=== PATIENT | female | born 1950 | race Caucasian/White ===

== ENCOUNTER 2018-06-16 15:47 | Emergency (ER) | payer MEDICARE ==
[2018-06-16 16:03] VITALS: BP 136/86; PULSE 80; O2SAT 95
== END 2018-06-16 16:50 | disposition left against medical advice (07) ==
LOC: ED 15:47
DX: Z53.21 Procedure and treatment not carried out due to patient leaving prior to being seen by health care provider (principal)
CPT/HCPCS: 99283; G0463

== ENCOUNTER 2018-11-30 08:31 | Emergency (ER) | payer MEDICARE ==
--- NOTE | 2018-11-30 08:52 | ERPHSYRPT ---
- History of Present Illness Time Seen by Provider: 11/30/18 08:40 Source: patient Exam Limitations: no limitations Patient Subjective Stated Complaint: fell down approx [address] in her home and injured right wrist, right black eye and right shoulder pain Triage Nursing Assessment: Pt c/o of right shoulder pain, right black eye, and right wrist pain due to a fall down 20 carpeted stairs in her home, rates pain 10/10, right wrist swollen, denies any other pain, denies losing consciousness, capillary refill good, pulses good, vitals wnl Physician History: 68 y/o white female on xarelto who 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 there is an obvious deformity of right wrist. Occurred: just prior to arrival Reason for Fall: slipped Injuries/Pain Location: head, upper extremity (right) Loss of Consciousness: no loss of consciousness Severity of Pain-Max: mild Severity of Pain-Current: mild Modifying Factors: Improves With: movement Associated Symptoms (Fall): denies symptoms, extremity injury, No abdominal pain , No back pain, No confusion, No chest pain, No dizziness Allergies/Adverse Reactions: No Known Drug Allergies Allergy (Verified 11/30/18 08:47) Home Medications: Escitalopram Oxalate [Lexapro] 20 mg PO HS 07/26/14 [History] Esomeprazole Magnesium [Nexium] 40 mg PO DAILY 07/26/14 [History] Hydrocodone Bit/Acetaminophen [[place] 5-325 Tablet] 1 each PO Q4-6HPRN PRN [History] Lidocaine HCl 5% Patch [Lidoderm Patch 5%] 1 patch TP DAILY 01/26/16 [ History] Rivaroxaban [Xarelto] 20 mg PO HS 01/26/16 [History] Zolpidem Tartrate [Ambien] 5 mg PO HS 01/26/16 [History] Hx Tetanus, Diphtheria Vaccination/Date Given: Yes Hx Influenza Vaccination/Date Given: No Hx Pneumococcal Vaccination/Date Given: Yes - Review of Systems Constitutional: No Symptoms Eyes: No Symptoms Ears, Nose, & Throat: No Symptoms Respiratory: No Symptoms Cardiac: No Symptoms Abdominal/Gastrointestinal: No Symptoms Genitourinary Symptoms: No Symptoms Musculoskeletal: Deformity (right wrist), Fall, Injury Skin: No Symptoms Neurological: No Symptoms, No Dizziness, No Gait Changes, No Headache Psychological: No Symptoms Endocrine: No Symptoms Hematologic/Lymphatic: No Symptoms Immunological/Allergic: No Symptoms All Other Systems: Reviewed and Negative - Past Medical History Pertinent Past Medical History: Yes Neurological History: No Pertinent History ENT History: No Pertinent History Cardiac History: Arrhythmia Respiratory History: COPD Endocrine Medical History: No Pertinent History Musculoskeletal History: Arthritis, Fibromyalgia GI Medical History: GERD, Other History: No Pertinent History Psycho-Social History: Depression Female Reproductive Disorders: No Pertinent History Other Medical History: l4-l5 back nerve pain - Past Surgical History Past Surgical History: Yes Neuro Surgical History: No Pertinent History Cardiac: Pacemaker Respiratory: No Pertinent History Gastrointestinal: Cholecystectomy Genitourinary: No Pertinent History Musculoskeletal: Orthopedic Surgery Female Surgical History: Hysterectomy Other Surgical History: rectal surgery. left wrist. dental implant - Social History Smoking Status: Smoker, status unknown Exposure to second hand smoke: No Drug Use: none Patient Lives Alone: No - Female History Hx Now: No - Nursing Vital Signs Nursing Vital Signs: Initial Vital Signs Temperature 97.7 F 11/30/18 08:36 Pulse Rate 70 11/30/18 08:36 Blood Pressure 131/63 11/30/18 08:36 O2 Sat by Pulse Oximetry 97 11/30/18 08:36 Pain Scale Pain Intensity 10 - [place] Coma Score Best Eye Response ([place]): (4) open spontaneously Best Verbal Response ([place]): (5) oriented Best Motor Response ([place]): (6) obeys commands [place] Total: 15 - Physical Exam General Appearance: no apparent distress, alert, anxiety Head Injury: contusions (right eye), ecchymosis, tenderness Eye Exam: PERRL/EOMI, eyes nml inspection ENT Exam: airway nml, hearing grossly normal Neck Exam: supple, trachea midline, full range of motion, normal alignment, normal inspection Respiratory/Chest Exam: normal breath sounds, No chest tenderness, No respiratory distress Cardiovascular Exam: normal heart sounds, regular rate/rhythm, normal peripheral pulses Gastrointestinal Exam: soft, normal bowel sounds, No tenderness, No guarding, No rebound Rectal Exam: not done Back Exam: normal inspection, normal range of motion, No CVA tenderness, No vertebral tenderness Extremity Exam: capillary refill <3 sec, pelvis stable, limited range of motion , evidence of injury (right wrist), tenderness Neurologic Exam: alert, oriented x 3, cooperative, packing supervisor II-XII nml as tested Skin Exam: abrasion (left hand dorsal aspect), ecchymosis SpO2 Interpretation: normal SpO2: 97 O2 Delivery: Room Air - Course Nursing assessment & vital signs reviewed: Yes Ordered Tests: Active Orders 24 hr Category Date Time Status FOREARM Stat Exams 11/30/18 08:56 Taken HAND (MINIMUM 3 VIEWS) Stat Exams 11/30/18 08:56 Taken HEAD WITHOUT CONTRAST [CT] Stat Exams 11/30/18 08:55 Taken SHOULDER Stat Exams 11/30/18 08:56 Taken - Progress Progress: pain not gone completely, re-examined Progress Note: 11/30/18 10:00 ct head-no intracranial pathology xray right forearm and shoulder-no acute fx or dislocation 11/30/18 10:21 xray right hand-avulsion fx carpal bone. 11/30/18 10:22 pt has norco at home. does not want any pain meds here in ED Counseled pt/family regarding: diagnosis, need for follow-up, rad results - Departure Time of Disposition: 10:23 Departure Disposition: Home Clinical Impression: Avulsion fracture of bone Condition: Stable Critical Care Time: No Referrals: THIEN FONTAINE [Primary Care Provider] - Additional Instructions: ice pack to area 3 times daily for 3 days. add ibuprofen 600mg orally 3 times daily with food. follow up with orthopedic surgeon for further management
[2018-11-30 10:06] VITALS: BP 130/71; PULSE 71
[2018-11-30 10:26] VITALS: O2SAT 97
--- NOTE | 2018-11-30 19:24 | XRAY ---
Indication: Pain following fall. Comparison: None 2 views of the right forearm obtained. No bony, articular, or soft tissue abnormalities. Hand/wrist reported separately. Comment: Preliminary interpretation was made by [facility]. No critical discrepancy.
--- NOTE | 2018-11-30 19:25 | XRAY ---
Indication: Pain following fall. Comparison: None 3 views of the right wrist demonstrates nondisplaced cortical fracture involving the distal radius, anterior ulnar aspect. Also tiny curvilinear ossification posterior to the distal carpal row with soft tissue swelling concerning for fracture fragment. No other bony, articular, or soft tissue abnormalities. Comment: Preliminary interpretation was made by [facility] who does not report the additional distal radial fracture.
--- NOTE | 2018-11-30 19:27 | XRAY ---
Indication: Pain following fall. Comparison: None 3 views of the right shoulder demonstrate small humeral head bone island, multilevel degenerative spondylosis, left hilar calcified nodes, and partially visualized pacer leads. No other bony, articular, or soft tissue abnormalities. Comment: Preliminary interpretation was made by [facility]. No discrepancy.
--- NOTE | 2018-11-30 19:32 | XRAY ---
Indication: Right head injury following fall. Multiple contiguous axial images obtained through the head without contrast. Comparison: March 12, 2016. Normal appearing brain parenchyma, ventricles, and bony calvarium. Again complete opacification of the right sphenoid sinus and partial opacification of the inferior left mastoid air cells. Remaining visualized paranasal sinuses and mastoid air cells are clear. Impression: No acute intracranial abnormalities. Again chronic opacification of the right sphenoid sinus and partial opacification of the left mastoid air cells both presumed inflammatory. Comment: Preliminary interpretation was made by [facility] who does not report incidental paranasal sinus disease.
== END 2018-11-30 10:57 | disposition home or self-care (01) ==
LOC: ED 08:31
DX: S62.101A Fracture of unspecified carpal bone, right wrist, initial encounter for closed fracture (principal); M25.531 Pain in right wrist; M25.511 Pain in right shoulder; S00.11XA Contusion of right eyelid and periocular area, initial encounter; W10.8XXA Fall (on) (from) other stairs and steps, initial encounter; Y92.009 Unspecified place in unspecified non-institutional (private) residence as the place of occurrence of the external cause; Z79.899 Other long term (current) drug therapy; J44.9 Chronic obstructive pulmonary disease, unspecified; F32.9 Major depressive disorder, single episode, unspecified; K21.9 Gastro-esophageal reflux disease without esophagitis; F41.9 Anxiety disorder, unspecified; R58 Hemorrhage, not elsewhere classified
CPT/HCPCS: 70450; 73030; 73090; 73130; 99284; L3908

== ENCOUNTER 2018-12-18 05:58 | Day surgery (SDC) | payer MEDICARE ==
[2018-12-18] MEDS ORDERED: Ketamine HCl 50 MG/ML IJ ONE (05:59)
[2018-12-18] MEDS ORDERED: DIPRIVAN 200 MG/20 ML IV ONE (05:59)
[2018-12-18 06:30] VITALS: O2SAT 98
[2018-12-18] MEDS ORDERED: Lactated Ringers 1,000 ML IV ONE (06:44)
[2018-12-18] MEDS ORDERED: Lactated Ringers 1,000 ML IV SCH (07:00)
[2018-12-18 08:43] VITALS: BP 143/78; PULSE 71
--- NOTE | 2018-12-18 08:57 | OP ---
SURGERY DATE/TIME: 12/18/2018711 PREOPERATIVE DIAGNOSES: 1) Abdominal pain. 2) History of colon cancer. POSTOPERATIVE DIAGNOSES: 1) Moderate gastritis. 2) Normal colon. PROCEDURES: 1) EGD. 2) Colonoscopy. SURGEON: Benny Hayes M.D. ANESTHESIA: MAC by Odin Barba CRNA. ESTIMATED BLOOD LOSS: Minimal. SPECIMENS: Two cold forceps biopsies were taken from the gastric antrum. DESCRIPTION OF PROCEDURE: After informed written consent was obtained, the patient was taken to the endoscopy suite. She underwent monitored anesthesia and a bite block was inserted. Endoscope inserted in the posterior oropharynx and under direct visualization the esophagus was traversed. The esophageal mucosa had a normal appearance free of lesions or defects. Upon entering the stomach there was normal rugated gastric mucosa. There were moderate gastritis-type changes in the antrum with some flakes of old blood. No obvious bleeding or ulceration was present. The duodenum likewise had some mild inflammation but no ulceration, bleeding or other lesions present. Two cold forceps biopsies were taken from the gastric antrum and sent for Helicobacter pylori testing. Upon withdrawal again all mucosal structures appeared normal. The scope was removed and the scopes were switched. Digital rectal exam showed normal sphincter tone and no internal lesions. The scope was inserted in the rectum and sequentially the entire colonic mucosa was traversed. The level of cecum was reached and verified with direct visualization of ileocecal valve. Upon withdrawal careful mucosal inspection revealed no gross lesions or abnormalities. There was some liquid stool present throughout different areas of the colon. Prep was noted to be fair. Prior to withdrawal retroflexion was showed no internal lesions. The scope was removed and the patient was transferred to the recovery room in good condition. She will follow up in a week for pathology results.
== END 2018-12-18 08:57 | disposition home or self-care (01) ==
LOC: SDC 05:58
PROVIDERS: ATTEND Family Medicine
DX: K29.70 Gastritis, unspecified, without bleeding (principal); R10.9 Unspecified abdominal pain; Z85.038 Personal history of other malignant neoplasm of large intestine
CPT/HCPCS: 99100; J2704

== ENCOUNTER 2019-04-16 13:28 | Day surgery (SDC) | payer MEDICARE ==
[2019-04-16] MEDS ORDERED: Xylocaine-Mpf 2% 5 Ml Vial IJ ONE (13:29)
[2019-04-16] MEDS ORDERED: Depo-Medrol 40 MG/ML IM ONE (14:07)
[2019-04-16] MEDS ORDERED: DIPRIVAN 200 MG/20 ML IV ONE (14:36)
--- NOTE | 2019-04-16 15:44 | XRAY ---
Indication: Bilateral L3-S1 MBB. Intraoperative fluoroscopy was provided for 23 seconds. Single digital spot image submitted for interpretation demonstrates posterior needle tips projecting over the expected course of the left and right L3-S1 nerve roots. Correlate with intraoperative findings/report.
[2019-04-16] MEDS ORDERED: Lactated Ringers 1,000 ML IV ONE (16:35)
--- NOTE | 2019-04-16 16:51 | XRAY ---
23 seconds fluoroscopy time in surgery for bilateral L3-S1 MBB.
== END 2019-04-16 15:10 | disposition home or self-care (01) ==
LOC: SDC-PAIN 13:28
PROVIDERS: ATTEND Psychiatry & Neurology Pain Medicine
DX: M47.816 Spondylosis without myelopathy or radiculopathy, lumbar region (principal); J44.9 Chronic obstructive pulmonary disease, unspecified; F32.9 Major depressive disorder, single episode, unspecified; Z79.899 Other long term (current) drug therapy
CPT/HCPCS: 64493; 64494; 64495; 72020; 77002; J1030; J2704

== ENCOUNTER 2020-07-15 22:18 | Emergency (ER) | payer MEDICARE ==
[2020-07-15] MEDS ORDERED: TORAdol 30 mg Injection IV ONE (22:47)
[2020-07-15] MEDS ORDERED: TORAdol 30 mg Injection IM ONE (22:52)
[2020-07-15] MEDS ORDERED: TORAdol 30 mg Injection ONE (22:52)
--- NOTE | 2020-07-16 00:06 | ERPHSYRPT ---
- History of Present Illness Time Seen by Provider: 07/15/20 22:40 Source: patient Exam Limitations: no limitations Patient Subjective Stated Complaint: pt states that she was walking and fell in a hole, pt state that she thinks she broke her left foot Triage Nursing Assessment: pt ambulated into the er, pt is axo x4, pt is limping on left leg, pt states 10/10 pain to left foot, no deformity present in left foot, no bruising present, no swelling present, strong pedal pulse to LLE, good cap refill to LLE, good ROM to left foot, hypertension Physician History: Patient is a 69-year-old female who presents to our ED with complaints of pain to her left foot. Patient states she was ambulating in her yard when she stepped into a hole. This caused her to invert her left foot. Injury occurred just prior to arrival. Patient describes a pain at the lateral aspect of the fifth metatarsal. Pain described as an ache that is well localized. No radiation. Pain worse with movement and palpation. Pain improved with rest. No other injuries reported. No BHT or LOC. No neck pain. No hip back or knee pain. Patient is otherwise healthy. She voices no other complaints or concerns at this time. Method of Injury: twisted Occurred: just prior to arrival Quality: constant Severity of Pain-Max: moderate Severity of Pain-Current: mild Lower Extremities Pain: foot: left Modifying Factors: Improves With: movement Associated Symptoms: none Allergies/Adverse Reactions: gabapentin Allergy (Verified 07/15/20 22:28) morphine Allergy (Verified 07/15/20 22:28) Home Medications: Esomeprazole Magnesium [Nexium] 40 mg PO DAILY 07/26/14 [History] Rivaroxaban [Xarelto] 20 mg PO HS 01/26/16 [History] Zolpidem Tartrate [Ambien] 5 mg PO HS 01/26/16 [History] Hx Tetanus, Diphtheria Vaccination/Date Given: Yes Hx Influenza Vaccination/Date Given: No Hx Pneumococcal Vaccination/Date Given: Yes Travel Risk - International Travel Have you traveled outside of the country in past 3 weeks: No - Coronavirus Screening Are you exhibiting any of the following symptoms?: No Close contact with a COVID-19 positive Pt in past 14-21 Days: No - Review of Systems Constitutional: No Symptoms, No Fever, No Chills Eyes: No Symptoms Ears, Nose, & Throat: No Symptoms Respiratory: No Symptoms, No Cough, No Dyspnea Cardiac: No Symptoms, No Chest Pain, No Edema, No Syncope Abdominal/Gastrointestinal: No Symptoms, No Abdominal Pain, No Nausea, No Vomiting, No Diarrhea Genitourinary Symptoms: No Symptoms, No Dysuria Musculoskeletal: No Symptoms, No Back Pain, No Neck Pain Skin: No Symptoms, No Rash Neurological: No Symptoms, No Dizziness, No Focal Weakness, No Sensory Changes Psychological: No Symptoms Endocrine: No Symptoms Hematologic/Lymphatic: No Symptoms Immunological/Allergic: No Symptoms All Other Systems: Reviewed and Negative - Past Medical History Pertinent Past Medical History: Yes Neurological History: No Pertinent History ENT History: No Pertinent History Cardiac History: Other Respiratory History: COPD Endocrine Medical History: No Pertinent History Musculoskeletal History: Arthritis, Fractures, Osteoarthritis GI Medical History: GERD, Other History: No Pertinent History Psycho-Social History: Depression Female Reproductive Disorders: No Pertinent History Other Medical History: hypotension, pacemaker - Past Surgical History Past Surgical History: Yes Neuro Surgical History: No Pertinent History Cardiac: Pacemaker Respiratory: No Pertinent History Gastrointestinal: Cholecystectomy Genitourinary: No Pertinent History Musculoskeletal: Orthopedic Surgery Female Surgical History: Hysterectomy Other Surgical History: rectal cancer surgery. left wrist. dental implant. spinal surgery - Social History Smoking Status: Former smoker Exposure to second hand smoke: No Drug Use: none Patient Lives Alone: No - Female History Hx Now: No - Nursing Vital Signs Nursing Vital Signs: Initial Vital Signs Temperature 98.1 F 07/15/20 22:30 Pulse Rate 83 07/15/20 22:30 Respiratory Rate 16 07/15/20 22:30 Blood Pressure 172/100 07/15/20 22:30 O2 Sat by Pulse Oximetry 97 07/15/20 22:30 Pain Scale Pain Intensity 4 - Physical Exam General Appearance: no apparent distress, alert Eyes, Ears, Nose, Throat Exam: moist mucous membranes Neck Exam: non-tender, supple Cardiovascular/Respiratory Exam: chest non-tender, regular rate/rhythm, no respiratory distress Back Exam: normal inspection, No vertebral tenderness Hips Exam: bilateral: non-tender, normal inspection, normal range of motion, no evidence of injury Legs Exam: bilateral leg: non-tender, normal inspection, normal range of motion, no evidence of injury Knees Exam: bilateral knee: non-tender, normal inspection, normal range of motion, no evidence of injury Ankle Exam: left ankle: swelling, bilateral ankle: non-tender, normal inspection, normal range of motion, no evidence of injury Foot Exam: right foot: non-tender, normal inspection, normal range of motion, no evidence of injury, left foot: pain, soft tissue tenderness, swelling (Tenderness to palpation at the lateral aspect of fifth metatarsal. Overlying soft tissue intact no ecchymosis. Extremities neurovascularly intact distally. Compartments are soft. Cap refill less than 2 seconds. PT DP pulse palpable.) Neuro/Tendon Exam: normal sensation, normal motor functions Mental Status Exam: alert, oriented x 3, cooperative Skin Exam: normal color, warm, dry SpO2 Interpretation: normal SpO2: 96 O2 Delivery: Room Air - Course Nursing assessment & vital signs reviewed: Yes - Radiology Exams Foot X-ray Interpretation: Interpreted by me (No fracture or dislocation.) Ordered Tests: Active Orders 24 hr Category Date Time Status FOOT (MINIMUM 3 VIEWS) Stat Exams 07/15/20 22:47 Taken Medication Summary Discontinued Medications Generic Name Dose Route Start Last Admin Trade Name Tess PRN Reason Stop Dose Admin Ketorolac Tromethamine 30 mg 07/15/20 22:47 07/15/20 22:52 Toradol 30 Mg Injection IV 07/15/20 22:48 Not Given STAT ONE Ketorolac Tromethamine 30 mg 07/15/20 22:52 07/15/20 22:58 Toradol 30 Mg Injection IM 07/15/20 22:53 30 mg STAT ONE Administration Ketorolac Tromethamine Confirm 07/15/20 22:52 Toradol 30 Mg Injection Administered 07/15/20 22:53 Dose 30 mg .ROUTE .Blockboard ONE - Progress Progress: improved Progress Note: 07/16/20 00:54 Patient reassessed. Pain improved. X-ray negative for acute pathology. Patient declined crutches. Patient advised to stay off of her foot the [id number] analgesics until symptoms improve. If symptoms persist patient may require repeat x-ray or possible MRI. Patient agrees to follow-up with her primary care doctor within 48 hours for reevaluation. Counseled pt/family regarding: diagnosis, need for follow-up, rad results - Departure Departure Disposition: Home Clinical Impression: Foot contusion Condition: Stable Critical Care Time: No Referrals: THIEN BLISS [Primary Care Provider] - Instructions: Contusion (DC) Additional Instructions: Discharge/Care Plan JERRY RODRIGUEZ was seen on 07/16/20 in the Emergency Room. The patient was counseled regarding Diagnosis,Lab results, Imaging studies, need for follow up and when to return to the Emergency Room. Prescriptions given: Discharge Note I have spoken with the patient and/or caregivers. I have explained the patient's condition, diagnosis and treatment plan based on the information available to me at this time. I have answered the patient's and/or caregiver's questions and addressed any concerns. The patient and/or caregivers have as good understanding of the patient's diagnosis, condition and treatment plan as can be expected at this point. The vital signs have been stable. The patient's condition is stable and appropriate for discharge from the emergency department. The patient will pursue further outpatient evaluation with the primary care physician or other designated or consulting physician as outlined in the discharge instructions. The patient and/or caregivers are agreeable to this plan of care and follow-up instructions have been explained in detail. The patient and/or caregivers have received these instruction. The patient/and or caregivers are aware that any significant change in condition or worsening of symptoms should prompt an immediate return to this or the closest emergency department or call 911.
[2020-07-16 00:14] VITALS: BP 132/61; PULSE 78
[2020-07-16 00:53] VITALS: O2SAT 96
--- NOTE | 2020-07-16 09:10 | XRAY ---
Indication: 5th metatarsal base pain following injury. Comparison: November 19, 2017. 3 nonweightbearing views right foot demonstrates healed 5th proximal phalanx fracture. No other bony, articular, or soft tissue abnormalities.
== END 2020-07-16 00:14 | disposition home or self-care (01) ==
LOC: ED 22:18
DX: S90.32XA Contusion of left foot, initial encounter (principal); X50.1XXA Overexertion from prolonged static or awkward postures, initial encounter; Y93.01 Activity, walking, marching and hiking; Y92.89 Other specified places as the place of occurrence of the external cause
CPT/HCPCS: 73630; 96372; 99284; J1885

== ENCOUNTER 2021-04-20 06:04 | Day surgery (SDC) | payer MEDICARE ==
[2021-04-20] MEDS ORDERED: Lactated Ringers 1,000 ML IV SCH (07:00)
[2021-04-20] MEDS ORDERED: DIPRIVAN 200 MG/20 ML IV ONE (08:06)
[2021-04-20] MEDS ORDERED: Xylocaine-Mpf 2% 5 Ml Vial ONE (08:06)
[2021-04-20 09:09] VITALS: BP 149/82; PULSE 72; O2SAT 99
--- NOTE | 2021-04-20 09:41 | OP ---
SURGERY DATE/TIME: 04/20/2021 0810 PREOPERATIVE DIAGNOSIS: Abdominal pain. POSTOPERATIVE DIAGNOSIS: Small hiatal hernia. PROCEDURE: EGD. SURGEON: Benny Hayes M.D. ANESTHESIA: MAC by David Ardon CRNA. ESTIMATED BLOOD LOSS: None. SPECIMENS: None. DESCRIPTION OF PROCEDURE: After informed written consent was obtained, the patient was taken to the endoscopy suite. She was placed in left lateral decubitus position and a bite block was inserted and anesthesia was titrated to the desired level of consciousness. The endoscope was inserted into the posterior oropharynx and under direct visualization the esophageal mucosa was traversed. The gastroesophageal junction had a normal mucosal appearance. There was a small hiatal hernia appreciable. The stomach had a normal rugated mucosa free of any lesions or defects. The pylorus was traversed and the duodenum had a normal mucosal appearance as well with no obvious abnormalities upon withdrawal. Again no ulceration or gastritis changes were appreciable. The scope was removed and the patient was transferred to the recovery room in good condition.
== END 2021-04-20 09:18 | disposition home or self-care (01) ==
LOC: SDC 06:04
PROVIDERS: ATTEND Family Medicine
DX: K44.9 Diaphragmatic hernia without obstruction or gangrene (principal); Z79.899 Other long term (current) drug therapy
CPT/HCPCS: 99100; J2704

== ENCOUNTER 2023-04-30 08:32 | Day surgery (SDC) | payer MEDICARE ==
[2023-04-30] MEDS ORDERED: Lactated Ringers 1,000 ML IV ONE (08:38)
--- NOTE | 2023-04-30 08:49 | HP ---
DATE OF SURGERY: 04/30/2023 HISTORY OF PRESENT ILLNESS: The patient is a 72-year-old with some epigastric pain, some upper abdominal pressure, problems with food sticking upper esophagus and takes a while to get down. She has gained weight the last few years. She has history of hiatal hernia in the past. Last upper endoscopy three years ago. Family history negative for esophageal cancer. She is in need of EGD possible biopsy possible dilatation. PAST MEDICAL HISTORY: Hypertension, chronic obstructive pulmonary disease, arthritis, gastroesophageal reflux disease, hernia, diabetes type II, fibromyalgia and heartburn in the past. PAST SURGICAL HISTORY: EGD. Hysterectomy. Pacemaker. Foot fracture in the past. Wrist surgery. Pain stimulator in the past. MEDICATIONS: Magnesium, calcium carbonate, vitamin D3, sertraline, metoprolol, Xarelto, zolpidem, esomeprazole magnesium. ALLERGIES: GABAPENTIN. MORPHINE. FAMILY HISTORY: Chronic obstructive pulmonary disease. Negative for esophageal cancer. SOCIAL HISTORY: No smoking or alcohol abuse. REVIEW OF SYSTEMS: Fourteen systems reviewed pertinent for problems noted above. No chest pain or palpitations currently. Other systems negative or noncontributory as above and per preadmission questionnaire. PHYSICAL EXAMINATION: Height 5'4". BMI 34. GENERAL: No acute distress. HEENT: Sclerae nonicteric. EOMI. Oral mucous membranes moist. NECK: No JVD. CHEST: Equal excursion, nonlabored breathing. CVS: Regular rate and rhythm. ABDOMEN: Soft. EXTREMITIES: No cyanosis. NEURO: Alert, oriented, moving extremities symmetrically. PSYCH: Appropriate mood and affect. SKIN: Dry. IMPRESSION: Dysphagia, epigastric pain and some bloating. She is in need of EGD possible biopsy possible dilatation. Risks and benefits explained in detail but not limited to risk of bleeding or infection, risk of bowel injury or perforation possibly requiring transfer for stent placement possible further procedure, possibility of no improvement of swallowing, possibly requiring other procedures, dilation or referrals, possible neurologic or functional problem that dilatation might not benefit. If dilatation is performed and improves swallowing might need repeated down the road. The patient agrees to the planned procedure. Otherwise continue medications for diabetes type II, chronic obstructive pulmonary disease, hypertension and arthritis. Will proceed with EGD, possible biopsy, possible dilatation as an outpatient.
[2023-04-30] MEDS ORDERED: Lactated Ringers 1,000 ML IV SCH (09:30)
[2023-04-30] MEDS ORDERED: DIPRIVAN 200 MG/20 ML IV ONE ×2 (10:25→10:48)
[2023-04-30 11:17] VITALS: RESP 18
[2023-04-30 11:34] VITALS: O2SAT 95
[2023-04-30 11:46] VITALS: BP 125/76; PULSE 65; TEMP 97
--- NOTE | 2023-04-30 13:03 | OP ---
SURGERY DATE/TIME: 04/30/2023 1033 PREOPERATIVE DIAGNOSES: 1) Dysphagia. 2) Epigastric pain and bloating. POSTOPERATIVE DIAGNOSES: 1) Gastritis. 2) Short segment distal esophagitis. 3) Possible esophageal narrowing and spasm requiring dilatation. PROCEDURES: 1) EGD with cold biopsy of small bowel to evaluate for celiac sprue. 2) Cold biopsy of the antrum to evaluate for Helicobacter pylori. 3) Cold biopsy distal esophagus to evaluate for distal esophagitis. 4) Proximal esophageal dilatation (size 20 balloon). SURGEON: Dr. Odin Cosme. ANESTHESIA: MAC. ESTIMATED BLOOD LOSS: Minimal. INDICATIONS: As noted above. Risks and benefits explained in detail and not limited to and consent obtained. DESCRIPTION OF PROCEDURE AND FINDINGS: The patient is taken to the endoscopy room. MAC anesthesia introduced. After official time out and no disagreement with planned procedure, a bite block positioned. Video gastroscope easily passed down the oropharynx. There was some proximal esophageal narrowing and spasm. There was no obvious mass to biopsy in this area. Given her symptoms it was felt she warranted dilatation. The scope was carefully passed down through this area to the patent pylorus to the junction of the third and fourth portion of the duodenum. Cold biopsy is taken to evaluate for celiac sprue and to evaluate for any other causes of her bloating. Good hemostasis noted. There were no signs of any ulcers. The scope is pulled back in the stomach. Gastric erythema and congestion was noted. No signs of any obvious ulcers. Cold biopsy taken in the antrum to evaluate for Helicobacter pylori. On retroflex the gastroesophageal junction snug against the scope. No signs of any large hiatal hernia. The scope is straightened. Gastroesophageal junction about 40 cm. There is a short segment of 2 to 3 mm of distal esophagitis and some salmon pink mucosa. Again, a very short segment of 2 to 3 mm. Cold biopsy is taken. Good hemostasis noted. Otherwise scope pulled back up to proximal esophageal narrowed area. There is some narrowing and spasm but no evidence of obvious mass to biopsy. It was felt this warranted dilatation given her symptoms/ Scope passed back down the stomach. The 20 balloon catheter carefully inserted and then pulled back up to the proximal narrowed and spasm area this is carefully inflated first stage 30 seconds, second stage 30 seconds and the final stage for 2 minutes. Size 20 balloon dilator balloon catheter was then removed. The scope passed back down through the area. The area seemed to be more widely patent. On careful withdrawal, there are no signs of any full thickness issues or injury secondary to dilatation. The area seemed to be more widely patent post-dilatation. Findings discussed with the family out in the waiting area.
== END 2023-04-30 11:45 | disposition home or self-care (01) ==
LOC: SDC 08:32
PROVIDERS: ATTEND Surgery
DX: K29.70 Gastritis, unspecified, without bleeding (principal); R13.10 Dysphagia, unspecified; R10.13 Epigastric pain; R14.0 Abdominal distension (gaseous); K20.90 Esophagitis, unspecified without bleeding; K22.2 Esophageal obstruction
CPT/HCPCS: 99100; J2704

== ENCOUNTER 2023-12-18 08:13 | Day surgery (SDC) | payer MEDICARE ==
[~2023-12-18 08:13] MED LIST: BETADINE 5% OPHTHALMIC 30 ML OP ONE; NON-FORMULARY ITEM OP ONE; cefUROXime sodium 0.005 GM in Sodium Chloride Flush 30 ML*** 0.5 ML IJ ONE
[2023-12-18] MEDS ORDERED: Epinephrine Preservative Free 1 MG/ML IJ ONE (08:14)
[2023-12-18] MEDS ORDERED: Lactated Ringers 1,000 ML IV ONE (08:49)
[2023-12-18] MEDS: Lactated Ringers 1,000 ML IV SCH (08:59)
[2023-12-18] MEDS: TETRACAINE 0.5% STERI-UNIT SOL OP ONE ×2 (09:01→10:05)
[2023-12-18 09:16] VITALS: RESP 18; TEMP 97.5
[2023-12-18] MEDS: Ak-Dilate OPHTHALMIC*** 1.065 ML, Cyclogyl 1% OPHTH SOL 1.065 ML, GATIFLOXACIN 0.5% OPH... OP ONE (09:18)
[2023-12-18 09:23] LABS: Absolute Neutrophil Ct (ANC) 3.94 x10^3/uL (1.4-6.9); BASOPHIL % 0.4 % (0.0-0.4); Basophil (Absolute #) 0.03 x10^3/uL (0-0.4); Eosinophil % 2.7 % (0.00-5.0); Eosinophil (Absolute #) 0.19 x10^3/uL (0-0.5); Hematocrit 41.3 % (35-47); Hemoglobin 13.3 g/dL (12.0-16.0); IMMATURE GRAN # 0.02 x10^3u/L (0.00-0.03); IMMATURE GRAN % 0.3 % (0.00-0.4); Lymphocyte (Absolute #) 2.19 x10^3/uL (1.0-4.6); Lymphocytes % 31.4 % (24.0-44.0); Mean Cell Volume 86.4 fL (78-100); Mean Corpuscular Hemoglobin 27.8 pg (26-32); Mean Corpuscular Hgb Concent. 32.2 g/dL (32-36); Mean Platelet Volume 10.9 fL (7.5-11.0); Monocytes % 8.6 % (0.0-12.0); Neutrophil % 56.6 % (36.0-66.0); Platelet Count 215 x10^3/uL (150-450); Red Blood Count 4.78 x10^6/uL (4.1-5.4); Red Cell Distribution Width 13.2 % (11.5-14.0)
[2023-12-18 09:42] LABS: ALBUMIN 3.9 g/dL (3.5-5.0); ANION GAP 10.1 MEQ/L (5-15); BILIRUBIN,TOTAL 0.4 mg/dL (0.2-1.3); Calcium 9.5 mg/dL (8.4-10.2); Creatinine 1 0.84 mg/dL (0.52-1.04); EST GLOMERULAR FILTRATION RATE 72.4 ML/MIN; Potassium 4.2 mmol/L (3.5-5.1); Total Protein 6.7 g/dL (6.3-8.2)
[2023-12-18] MEDS ORDERED: Zofran 4 MG/2 ML VIAL IV PRN (10:15)
[2023-12-18] MEDS ORDERED: DIPRIVAN 200 MG/20 ML IV ONE (11:10)
[2023-12-18] MEDS: ACETAZOLAMIDE 250 MG TABLET PO ONE (11:39)
[2023-12-18 11:56] VITALS: BP 110/72; PULSE 78; O2SAT 94
== END 2023-12-18 12:03 ==
LOC: SDC 08:13
PROVIDERS: ATTEND Ophthalmology
DX: H25.812 Combined forms of age-related cataract, left eye (principal); I10 Essential (primary) hypertension
CPT/HCPCS: 36415; 80053; 85025; C1780; J0171; J2704; A9270-GY

== ENCOUNTER 2024-01-28 16:44 | Emergency (ER) | payer MEDICARE ==
--- NOTE | 2024-01-28 16:48 | ERPHSYRPT ---
- History of Present Illness Time Seen by Provider: 01/28/24 16:48 Source: patient, family Exam Limitations: no limitations Physician History: This is a 73-year-old obese white female patient who tripped over a thin wire earlier this morning onto the anterior aspect of her right knee. Her primary care provider is Dr. Melgar. Patient has been able to put weight on this knee when ambulating. However there is discomfort. She did place lidocaine patches on the area. Patient has a history of gastroesophageal reflux disease, hypertension, osteoarthritis and fibromyalgia. Patient has a history of coronary artery disease and pacemaker placement. She is on Xarelto. Method of Injury: fell Occurred: this morning Quality: constant, aching Severity of Pain-Max: moderate Severity of Pain-Current: moderate Lower Extremities Pain: knee: right Modifying Factors: Improves With: movement Associated Symptoms: none Allergies/Adverse Reactions: gabapentin Allergy (Verified 01/28/24 16:50) morphine Allergy (Verified 01/28/24 16:50) Home Medications: Esomeprazole Magnesium [Nexium] 40 mg PO BID 04/13/21 [History] Rivaroxaban [Xarelto] 20 mg PO DAILY 04/13/21 [History] Sertraline HCl [Zoloft] 50 mg PO DAILY 04/13/21 [History] Zolpidem Tartrate [Ambien] 10 mg PO HS 04/13/21 [History] Metoprolol Succinate 25 mg PO DAILY 04/16/23 [History] Hx Tetanus, Diphtheria Vaccination/Date Given: Yes Hx Influenza Vaccination/Date Given: No Hx Pneumococcal Vaccination/Date Given: Yes Travel Risk - International Travel Have you traveled outside of the country in past 3 weeks: No - Emerging Infectious Disease Are you exhibiting symptoms associated with any current EIDs: No - Review of Systems Constitutional: No Symptoms Eyes: No Symptoms Ears, Nose, & Throat: No Symptoms Respiratory: No Symptoms Cardiac: No Symptoms Abdominal/Gastrointestinal: No Symptoms Genitourinary Symptoms: No Symptoms Musculoskeletal: Fall, Injury (Right knee), Joint Pain (Right knee anteriorly) Skin: No Symptoms Neurological: No Symptoms Psychological: No Symptoms Endocrine: No Symptoms Hematologic/Lymphatic: No Symptoms Immunological/Allergic: No Symptoms All Other Systems: Reviewed and Negative - Past Medical History Pertinent Past Medical History: Yes Neurological History: No Pertinent History ENT History: No Pertinent History Cardiac History: Coronary Artery Disease Respiratory History: COPD Endocrine Medical History: No Pertinent History Musculoskeletal History: Arthritis, Fibromyalgia, Fractures, Osteoarthritis GI Medical History: GERD, Other History: No Pertinent History Psycho-Social History: Depression Female Reproductive Disorders: No Pertinent History Other Medical History: hypotension, pacemaker - Past Surgical History Past Surgical History: Yes Neuro Surgical History: No Pertinent History Cardiac: Cardiac Catheterization, Pacemaker Respiratory: No Pertinent History Gastrointestinal: Cholecystectomy Genitourinary: No Pertinent History Musculoskeletal: Orthopedic Surgery Female Surgical History: Hysterectomy Other Surgical History: rectal cancer surgery. left wrist. dental implant. spinal surgery. pain stimulator. sinus - Social History Smoking Status: Former smoker Exposure to second hand smoke: No Drug Use: none Patient Lives Alone: No - Nursing Vital Signs Nursing Vital Signs: Initial Vital Signs Temperature 89 F 01/28/24 16:52 Pulse Rate 92 H 01/28/24 16:52 Respiratory Rate 18 01/28/24 16:52 Blood Pressure 140/64 01/28/24 16:52 O2 Sat by Pulse Oximetry 97 01/28/24 16:52 Pain Scale Pain Intensity 10 - Physical Exam General Appearance: no apparent distress, alert, anxiety, obese Eyes, Ears, Nose, Throat Exam: normal ENT inspection, moist mucous membranes Neck Exam: normal inspection, non-tender, supple, full range of motion Cardiovascular/Respiratory Exam: chest non-tender, no respiratory distress Gastrointestinal/Abdominal Exam: non-tender Back Exam: normal inspection, normal range of motion, No CVA tenderness, No vertebral tenderness Hips Exam: bilateral: non-tender, normal inspection, normal range of motion, no evidence of injury Legs Exam: bilateral leg: non-tender, normal inspection, normal range of motion, no evidence of injury Knees Exam: right knee: bone tenderness (Anteriorly), soft tissue tenderness (Anteriorly), left knee: non-tender, bilateral knee: normal inspection, normal range of motion, no evidence of injury Ankle Exam: bilateral ankle: non-tender, normal inspection, normal range of motion, no evidence of injury Foot Exam: bilateral foot: non-tender, normal inspection, normal range of motion, no evidence of injury Neuro/Tendon Exam: normal sensation, normal motor functions, normal tendon functions, responds to pain, no evidence tendon injury Mental Status Exam: alert, oriented x 3 Skin Exam: normal color, warm, dry SpO2 Interpretation: normal O2 Delivery: Room Air - Course Nursing assessment & vital signs reviewed: Yes Ordered Tests: Active Orders 24 hr Category Date Time Status KNEE (3 VIEWS) Stat Exams 01/28/24 17:02 Taken - Progress Progress: unchanged Progress Note: 01/28/24 17:40 My medical decision making and the assignment of low complexity of this patient's medical issue today is based on review of the patient's past medical history, review patient's medication list, review the patient drug allergy list, history present illness and physical findings on examination. The workup in this patient includes x-ray of the patient's right knee. Differential diagnosis includes dislocated right knee, fracture right knee, contusion of right knee I interpreted the patient's x-ray of the right knee as a preliminary read. This was discussed with the patient. I do not appreciate an acute fracture or dislocation. 01/28/24 17:42 Patient is not on any narcotic pain medicine per her report. She states that she has had Hermitage in the past without any untoward side effects. Counseled pt/family regarding: diagnosis, need for follow-up, rad results Medical Desision Making - Diagnostic Testing Diagnostic test were ordered, analyzed, and reviewed by me: Yes Radiological Interpretation: Interpreted by me - Risk of complications The pt has a mod risk of morbidity or mortality based on: Need for prescription drug management - Departure Departure Disposition: Home Clinical Impression: Contusion of right knee Condition: Stable Critical Care Time: No Referrals: NEAL MELGAR DO [Primary Care Provider] - Follow up/PCP as directed Additional Instructions: Ice pack to right knee 3 times a day for the next 48 hours. May also use lidocaine patch in between times. Take your medications as prescribed. Follow- up with your primary care provider or [facility] orthopedic clinic if after 72 hours the pain has not improved. The orthopedic clinic as a walk-in clinic and is open Sunday through Sunday 8 AM to 10 AM. Prescriptions: Hydrocodone/APAP 5/325 [Hermitage 5/325 mg] 1 each PO Q12H PRN PRN #4 tablet MDD 2 PRN Reason: Pain
[2024-01-28 17:03] VITALS: BP 140/64; PULSE 92; RESP 18; TEMP 89; O2SAT 97
--- NOTE | 2024-01-29 08:36 | XRAY ---
Indication: Pain following fall. Comparison: None 3 view right knee demonstrates osteopenia, tiny patella spurring, small nonspecific effusion, and suprapatella soft tissue swelling. No other bony, articular, or soft tissue abnormalities.
== END 2024-01-28 18:17 | disposition home or self-care (01) ==
LOC: ED 16:44
DX: S80.01XA Contusion of right knee, initial encounter (principal); W01.0XXA Fall on same level from slipping, tripping and stumbling without subsequent striking against object, initial encounter; I10 Essential (primary) hypertension; Z79.01 Long term (current) use of anticoagulants; Z79.891 Long term (current) use of opiate analgesic; Z79.899 Other long term (current) drug therapy
CPT/HCPCS: 73562; 99282

== ENCOUNTER 2024-11-25 11:37 | Emergency (ER) | payer MEDICARE, OTHER ==
[2024-11-25 12:01] VITALS: TEMP 97.2
[2024-11-25 12:24] LABS: Absolute Neutrophil Ct (ANC) 4.49 x10^3/uL (1.56-6.13); BASOPHIL % 0.3 % (0.1-1.2); Basophil (Absolute #) 0.02 x10^3/uL (0.01-0.08); Eosinophil % 1.1 % (0.7-5.8); Eosinophil (Absolute #) 0.07 x10^3/uL (0.04-0.36); Hematocrit 40.6 % (34.1-44.9); Hemoglobin 13.4 g/dL (11.2-15.7); IMMATURE GRAN # 0.02 x10^3u/L (0.001-0.031); IMMATURE GRAN % 0.3 % (0.001-0.429); Lymphocyte (Absolute #) 1.03 x10^3/uL (1.18-3.74); Lymphocytes % 16.9 % (19.3-51.7); Mean Cell Volume 87.7 fL (79.4-94.8); Mean Corpuscular Hemoglobin 28.9 pg (25.6-32.2); Mean Platelet Volume 11.2 fL (9.4-12.3); Monocyte (Absolute #) 0.46 x10^3/uL (0.24-0.86); Monocytes % 7.6 % (4.7-12.5); Neutrophil % 73.8 % (34.0-71.1); Platelet Count 187 x10^3/uL (182-369); Red Blood Count 4.63 x10^6/uL (3.93-5.22); Red Cell Distribution Width 12.6 % (11.7-14.4); White Blood Count 6.1 x10^3/uL (3.98-10.04)
[2024-11-25 12:32] LABS: INR 0.95 (0.8-3.0); PROTIME 10.4 SECONDS (9.4-12.5); PTT 23.6 SECONDS (25.1-36.5)
--- NOTE | 2024-11-25 12:46 | ERPHSYRPT ---
- History of Present Illness Time Seen by Provider: 11/25/24 12:43 Source: patient Exam Limitations: no limitations Patient Subjective Stated Complaint: pt states that she vomited up blood last night and this morning she vomited up bile this morning. pt states that she has had intermitten dark stools for a month. pt states that she is on blood thinners Triage Nursing Assessment: pt ambulated into the er; pt is axo x4; c/o vomiting; pt states 10/10 to colon; abd soft, round, tender; hypoactive bowel sounds in all quads; c/o N/V, denies diarrhea; skin PDW; no respiratory distress present; hypertensive Physician History: 74-year-old female on Xarelto presents to emergency department for evaluation of vomiting blood and dark stools. Patient states she vomited blood yesterday. Patient reports a bout of bilious emesis today with Abdominal pain. Abdominal pain is mostly lower abdomen. Patient rates her pain 10 out of 10 but declined pain medication. Patient has been experiencing intermittent dark stools for 1 month. No associated diarrhea. Symptoms are constant. Symptoms are mild to moderate in intensity. Palpation to the lower abdomen reproduces pain. Pain improved with rest. Patient voices no other complaints or concerns at this time. Portions of this note were created with voice recognition technology. There may be grammatical, spelling, punctuation or sound alike errors Timing/Duration: today Severity: moderate Modifying Factors: Improves With: nothing Associated Symptoms: denies symptoms Allergies/Adverse Reactions: docosahexaenoic acid [From Nuretin] Allergy (Verified 11/25/24 11:44) eicosapentaenoic acid [From Nuretin] Allergy (Verified 11/25/24 11:44) fish oil [From Nuretin] Allergy (Verified 11/25/24 11:44) gabapentin Allergy (Verified 11/25/24 11:44) morphine Allergy (Verified 11/25/24 11:44) omega-3 fatty acids [From Nuretin] Allergy (Verified 11/25/24 11:44) pregabalin [From Lyrica] Allergy (Verified 11/25/24 11:44) Home Medications: Esomeprazole Magnesium [Nexium] 40 mg PO HS 04/13/21 [History] Rivaroxaban [Xarelto] 15 mg PO HS 04/13/21 [History] Sertraline HCl [Zoloft] 25 mg PO HS 04/13/21 [History] Zolpidem Tartrate [Ambien] 5 mg PO HS 04/13/21 [History] Metoprolol Succinate 50 mg PO HS 04/16/23 [History] Calcium Phosphate Trib/Vit D3 [Calcium + Vitamin D3 Gummies] 1 each PO HS 06/03/24 [History] Vitamin B Complex 1 each PO HS 06/03/24 [History] Vitamin E (Dl,Tocopheryl Acet) [Vitamin E] 180 mg PO HS 06/03/24 [History] Tramadol HCl 50 mg [Ultram 50 mg] 25 mg PO HS 11/25/24 [History] Hx Tetanus, Diphtheria Vaccination/Date Given: Yes Hx Influenza Vaccination/Date Given: No Hx Pneumococcal Vaccination/Date Given: Yes Travel Risk - International Travel Have you traveled outside of the country in past 3 weeks: No - Emerging Infectious Disease Are you exhibiting symptoms associated with any current EIDs: Yes Symptoms: Vomitting - Review of Systems Constitutional: No Symptoms, No Fever, No Chills Eyes: No Symptoms Ears, Nose, & Throat: No Symptoms Respiratory: No Symptoms, No Cough, No Dyspnea Cardiac: No Symptoms, No Chest Pain, No Edema, No Syncope Abdominal/Gastrointestinal: No Symptoms, No Abdominal Pain, No Nausea, No Vomiting, No Diarrhea Genitourinary Symptoms: No Symptoms, No Dysuria Musculoskeletal: No Symptoms, No Back Pain, No Neck Pain Skin: No Symptoms, No Rash Neurological: No Symptoms, No Dizziness, No Focal Weakness, No Sensory Changes Psychological: No Symptoms Endocrine: No Symptoms Hematologic/Lymphatic: No Symptoms Immunological/Allergic: No Symptoms All Other Systems: Reviewed and Negative - Past Medical History Pertinent Past Medical History: Yes Neurological History: Peripheral Neuropathy ENT History: No Pertinent History Cardiac History: Arrhythmia Respiratory History: COPD Endocrine Medical History: No Pertinent History Musculoskeletal History: Arthritis, Degenerative Disk Disease GI Medical History: GERD, Other History: No Pertinent History Psycho-Social History: Depression Female Reproductive Disorders: No Pertinent History Other Medical History: SPINE STIMULATOR, HX OF LUMBAR SX ~4-5 YEARS AGO (UNSURE OF SX TYPE), PACEMAKER (~6 YEARS AGO), STRONG FAMILY OF CANCER. - Past Surgical History Past Surgical History: Yes Neuro Surgical History: No Pertinent History Cardiac: Cardiac Catheterization, Pacemaker Respiratory: No Pertinent History Gastrointestinal: Appendectomy, Cholecystectomy Genitourinary: No Pertinent History Musculoskeletal: Orthopedic Surgery Female Surgical History: Hysterectomy Other Surgical History: rectal cancer surgery. left wrist. dental implant. spinal surgery. pain stimulator. sinus - Social History Smoking Status: Former smoker Exposure to second hand smoke: No Drug Use: none - Social Determinants of Health Will the patient participate in the screening: Yes Do you worry about a steady place to live?: No Do you have any problems with any of the following?: No known problems In the past 12 months,have you had to go without utilities?: No Transportation Issues: No Has anyone in your support network made you feel unsafe?: No Have you or anyone in your house had to go w/o enough food: No - Nursing Vital Signs Nursing Vital Signs: Initial Vital Signs Pulse Rate 71 11/25/24 11:44 Respiratory Rate 16 11/25/24 11:44 Blood Pressure 151/79 11/25/24 11:44 O2 Sat by Pulse Oximetry 95 11/25/24 11:44 Pain Scale Pain Intensity 0 - Physical Exam General Appearance: no apparent distress, alert Eye Exam: PERRL/EOMI, eyes nml inspection Ears, Nose, Throat Exam: normal ENT inspection, pharynx normal, moist mucous membranes Neck Exam: normal inspection, full range of motion Respiratory Exam: normal breath sounds, lungs clear, No respiratory distress Cardiovascular Exam: regular rate/rhythm, normal heart sounds, normal peripheral pulses Gastrointestinal/Abdomen Exam: soft, normal bowel sounds, No tenderness, No mass Pelvic Exam: not done Rectal Exam: deferred Back Exam: normal inspection, normal range of motion, No CVA tenderness, No vertebral tenderness Extremity Exam: normal inspection, normal range of motion, pelvis stable Neurologic Exam: alert, oriented x 3, cooperative, normal mood/affect, sensation nml, No motor deficits Skin Exam: normal color, warm, dry, No rash Lymphatic Exam: No adenopathy SpO2 Interpretation: normal SpO2: 97 O2 Delivery: Room Air - Course Nursing assessment & vital signs reviewed: Yes Ordered Tests: Active Orders 24 hr Category Date Time Status Financial Advisor Trainee STAT Care 11/25/24 12:19 Active EKG-ER Only STAT Care 11/25/24 12:18 Active IV Insertion STAT Care 11/25/24 12:18 Active ABDOMEN AND PELVIS W/0 CONTRAS [CT] Stat Exams 11/25/24 12:22 Completed CBC W DIFF Stat Lab 11/25/24 12:00 Completed CMP Stat Lab 11/25/24 12:00 Completed CULTURE,URINE Stat Lab 11/25/24 12:45 Received PROTIME WITH INR Stat Lab 11/25/24 12:00 Completed PTT Stat Lab 11/25/24 12:00 Completed TROPONIN Q4H Lab 11/25/24 12:00 Completed TROPONIN Q4H Lab 11/25/24 16:30 Ordered TROPONIN Q4H Lab 11/25/24 20:30 Ordered UA W/RFX UR CULTURE Stat Lab 11/25/24 12:45 Completed Medication Summary Generic Name Dose Route Start Last Admin Trade Name Freq PRN Reason Stop Dose Admin Ceftriaxone Sodium 1 gm in 100 mls @ 200 mls/hr 11/25/24 14:01 Rocephin 1 Gm / 100 Ml Nacl IV 11/25/24 14:30 STAT ONE Discontinued Medications Generic Name Dose Route Start Last Admin Trade Name Freq PRN Reason Stop Dose Admin Pantoprazole Sodium 40 mg 11/25/24 14:08 Pantoprazole 40 Mg Vial IV 11/25/24 14:09 STAT ONE Lab/Rad Data: Laboratory Result Diagrams 11/25/24 12:00 11/25/24 12:00 Laboratory Results 11/25/24 11/25/24 11/25/24 Range/Units 12:45 12:00 12:00 WBC (3.98-10.04) x10^3/uL RBC (3.93-5.22) x10^6/uL Hgb (11.2-15.7) g/dL Hct (34.1-44.9) % MCV (79.4-94.8) fL MCH (25.6-32.2) pg MCHC (32.2-35.5) g/dL RDW (11.7-14.4) % Plt Count (182-369) x10^3/uL MPV (9.4-12.3) fL Gran % (34.0-71.1) % Immature Gran % (Auto) (0.001-0.429) % Nucleat RBC Rel Count (0.00-0.2) % Eos # (Auto) (0.04-0.36) x10^3/uL Immature Gran # (Auto) (0.001-0.031) x10^3u/L Absolute Lymphs (auto) (1.18-3.74) x10^3/uL Absolute Monos (auto) (0.24-0.86) x10^3/uL Absolute Nucleated RBC (0.00-0.012) x10^3u/L Lymphocytes % (19.3-51.7) % Monocytes % (4.7-12.5) % Eosinophils % (0.7-5.8) % Basophils % (0.1-1.2) % Absolute Granulocytes (1.56-6.13) x10^3/uL Basophils # (0.01-0.08) x10^3/uL PT 10.4 (9.4-12.5) SECONDS INR 0.95 (0.8-3.0) APTT 23.6 L (25.1-36.5) SECONDS Sodium (135-145) mmol/L Potassium (3.5-5.1) mmol/L Chloride (98-107) mmol/L Carbon Dioxide (22-30) mmol/L Anion Gap (5-15) MEQ/L BUN (7-17) mg/dL Creatinine (0.52-1.04) mg/dL Estimated GFR ML/MIN Glucose (74-106) mg/dL Calcium (8.4-10.2) mg/dL Total Bilirubin (0.2-1.3) mg/dL AST (14-36) U/L ALT (0-35) U/L Alkaline Phosphatase (38-126) U/L Troponin I < 0.012 (0.000-0.033) ng/mL Serum Total Protein (6.3-8.2) g/dL Albumin (3.5-5.0) g/dL Urine Color Dark Yellow A (Yellow) Urine Appearance Clear (Clear) Urine pH 5.5 (4.6-8.0) Ur Specific [place] 1.025 (1.005-1.030) Urine Protein Trace A (Negative) Urine Glucose (UA) Negative (Negative) mg/dL Urine Ketones Trace A (Negative) Urine Blood Trace (Negative) Urine Nitrite Positive A (Negative) Urine Bilirubin Negative (Negative) Urine Urobilinogen 1.0 A (0.2) mg/dL Ur Leukocyte Esterase Moderate A (Negative) U Hyaline Cast (Auto) NONE SEEN (0-2) /LPF Urine Microscopic RBC 0-2 (0-5) /HPF Urine Microscopic WBC 21-50 A (0-5) /HPF Ur Epithelial Cells Few (None Seen) /HPF Urine Bacteria Many A (None Seen) /HPF Urine Culture Reflexed YES (NO) 11/25/24 11/25/24 Range/Units 12:00 12:00 WBC 6.1 (3.98-10.04) x10^3/uL RBC 4.63 (3.93-5.22) x10^6/uL Hgb 13.4 (11.2-15.7) g/dL Hct 40.6 (34.1-44.9) % MCV 87.7 (79.4-94.8) fL MCH 28.9 (25.6-32.2) pg MCHC 33.0 (32.2-35.5) g/dL RDW 12.6 (11.7-14.4) % Plt Count 187 (182-369) x10^3/uL MPV 11.2 (9.4-12.3) fL Gran % 73.8 H (34.0-71.1) % Immature Gran % (Auto) 0.3 (0.001-0.429) % Nucleat RBC Rel Count 0.0 (0.00-0.2) % Eos # (Auto) 0.07 (0.04-0.36) x10^3/uL Immature Gran # (Auto) 0.02 (0.001-0.031) x10^3u/L Absolute Lymphs (auto) 1.03 L (1.18-3.74) x10^3/uL Absolute Monos (auto) 0.46 (0.24-0.86) x10^3/uL Absolute Nucleated RBC 0.00 (0.00-0.012) x10^3u/L Lymphocytes % 16.9 L (19.3-51.7) % Monocytes % 7.6 (4.7-12.5) % Eosinophils % 1.1 (0.7-5.8) % Basophils % 0.3 (0.1-1.2) % Absolute Granulocytes 4.49 (1.56-6.13) x10^3/uL Basophils # 0.02 (0.01-0.08) x10^3/uL PT (9.4-12.5) SECONDS INR (0.8-3.0) APTT (25.1-36.5) SECONDS Sodium 142 (135-145) mmol/L Potassium 3.7 (3.5-5.1) mmol/L Chloride 103 (98-107) mmol/L Carbon Dioxide 29 (22-30) mmol/L Anion Gap 13.4 (5-15) MEQ/L BUN 13 (7-17) mg/dL Creatinine 0.90 (0.52-1.04) mg/dL Estimated GFR 66.3 ML/MIN Glucose 108 H (74-106) mg/dL Calcium 9.5 (8.4-10.2) mg/dL Total Bilirubin 0.90 (0.2-1.3) mg/dL AST 40 H (14-36) U/L ALT 33 (0-35) U/L Alkaline Phosphatase 94 (38-126) U/L Troponin I (0.000-0.033) ng/mL Serum Total Protein 6.7 (6.3-8.2) g/dL Albumin 4.3 (3.5-5.0) g/dL Urine Color (Yellow) Urine Appearance (Clear) Urine pH (4.6-8.0) Ur Specific [place] (1.005-1.030) Urine Protein (Negative) Urine Glucose (UA) (Negative) mg/dL Urine Ketones (Negative) Urine Blood (Negative) Urine Nitrite (Negative) Urine Bilirubin (Negative) Urine Urobilinogen (0.2) mg/dL Ur Leukocyte Esterase (Negative) U Hyaline Cast (Auto) (0-2) /LPF Urine Microscopic RBC (0-5) /HPF Urine Microscopic WBC (0-5) /HPF Ur Epithelial Cells (None Seen) /HPF Urine Bacteria (None Seen) /HPF Urine Culture Reflexed (NO) - Progress Progress: improved Progress Note: 74-year-old female presents to our ED for evaluation of throwing up blood 1 time yesterday. Today she threw up bile. Patient complains of generalized abdominal pain. Physical exam shows mild lower abdominal tenderness. No back pain no fever. CT scan negative for acute intra-abdominal pathology. No vomiting or hematemesis in our ED today. Patient states she has never had a colonoscopy. However she has had a upper GI by Dr. East in the past. Patient's hemoglobin level is within her norm. Patient resting comfortably. Patient received a dose of Protonix in our ED. UA significant for urinary tract infection. Patient received a gram Rocephin in our ED. A prescription for Keflex forwarded to patient's pharmacy. A prescription for Protonix forwarded t o patient's pharmacy as well. We arranged for patient to have a follow-up appointment with Dr. Hayes tomorrow at [facility] at 2:15 PM. Patient was advised of the plan of care. Patient will follow-up as scheduled. Patient reassessed. Patient is resting comfortably. She has no active complaints will discharge home. Patient voices no other complaints or concerns at this time. Portions of this note were created with voice recognition technology. There may be grammatical, spelling, punctuation or sound alike errors Complexity of problem addressed is moderate acute complicated. No critical care time. Complex of data reviewed analyzes sensitive. Test ordered test reviewed results analyzed and correlated clinically with history and physical exam. Risk of complication and or risk of morbidity/mortality of patient management is moderate. A prescription for Protonix and Keflex forwarded to patient's pharmacy. Vital stable. Time spent to discharge patient is approximately 10 minutes. Plan of care established for shared decision making. No social determinants of health present to impede follow-up. Portions of this note were created with voice recognition technology. There may be grammatical, spelling, punctuation or sound alike errors 11/25/24 14:11 Counseled pt/family regarding: lab results, diagnosis, need for follow-up, rad results - Departure Departure Disposition: Home Clinical Impression: Urinary tract infection, Constipation Condition: Stable Critical Care Time: No Referrals: RAJINDER DURHAM MD [Primary Care Provider] - Follow up/PCP as directed Additional Instructions: Discharge/Care Plan MICHAELROGELIO was seen on 11/25/24 in the Emergency Room. The patient was counseled regarding Diagnosis,Lab results, Imaging studies, need for follow up and when to return to the Emergency Room. Prescriptions given: Discharge Note I have spoken with the patient and/or caregivers. I have explained the patient's condition, diagnosis and treatment plan based on the information available to me at this time. I have answered the patient's and/or caregiver's questions and addressed any concerns. The patient and/or caregivers have as good understanding of the patient's diagnosis, condition and treatment plan as can be expected at this point. The vital signs have been stable. The patient's condition is stable and appropriate for discharge from the emergency department. The patient will pursue further outpatient evaluation with the primary care physician or other designated or consulting physician as outlined in the discharge instructions. The patient and/or caregivers are agreeable to this plan of care and follow-up instructions have been explained in detail. The patient and/or caregivers have received these instruction. The patient/and or caregivers are aware that any significant change in condition or worsening of symptoms should prompt an immediate return to this or the closest emergency department or call 911. Prescriptions: Cephalexin Mh 500 mg [Keflex 500 mg] 500 mg PO TID 7 Days #21 cap PANTOPRAZOLE 40 mg Tablet [Protonix 40MG Tablet] 40 mg PO DAILY 14 Days #14 tab
[2024-11-25 12:49] LABS: ALBUMIN 4.3 g/dL (3.5-5.0); ANION GAP 13.4 MEQ/L (5-15); BILIRUBIN,TOTAL 0.9 mg/dL (0.2-1.3); Calcium 9.5 mg/dL (8.4-10.2); Creatinine 1 0.9 mg/dL (0.52-1.04); EST GLOMERULAR FILTRATION RATE 66.3 ML/MIN; Potassium 3.7 mmol/L (3.5-5.1); Total Protein 6.7 g/dL (6.3-8.2)
[2024-11-25 13:00] LABS: Appearance Clear (Clear); Bacteria Many /HPF (None Seen); Bilirubin Negative (Negative); Blood Trace (Negative); Epithelial Cells Few /HPF (None Seen); Glucose, Urine Negative (Negative); Hyaline Casts NONE SEEN /LPF (0-2); Ketones Trace (Negative); Leukocyte Esterase Moderate (Negative); Nitrite Positive (Negative); Ph 5.5 (4.6-8.0); Protein,Urine Dip Trace (Negative); RBC 0-2 /HPF (0-5); Specific Gravity 1.025 (1.005-1.030); WBC 21-50 /HPF (0-5)
--- NOTE | 2024-11-25 13:50 | XRAY ---
Indication: Pain. Vomiting. Multiple contiguous axial images obtained through abdomen and pelvis without contrast. Comparison: October 26, 2022 Lung bases demonstrates stable tiny left base calcified granuloma. No infiltrate or effusion. Heart not enlarged. Noncontrasted stomach and bowel loops appear nonobstructed. There remains mild diffuse scattered colonic fecal debris throughout and a few splenic calcified granulomas. Appendectomy, cholecystectomy, and hysterectomy reported. No free fluid/air. Remaining liver, pancreas, spleen, adrenal glands, kidneys, ureters, and bladder are unremarkable for noncontrast exam. There remains mild aortoiliac calcifications without AAA. Osseous structures intact again with osteopenia, minimal/mild degenerative changes throughout spine, tiny multilevel Schmorl nodes, and left lower back epidural stimulator/leads. Impression: 1. Again mild diffuse fecal stasis. 2. Chronic findings including arteriosclerotic disease, chronic bony findings, and old granulomatous disease. 3. No acute findings on this noncontrast exam.
[2024-11-25 14:05] VITALS: PULSE 88
[2024-11-25 14:09] VITALS: O2SAT 97
[2024-11-25] MEDS ORDERED: PROTONIX 40 MG IV IV ONE (14:09)
[2024-11-25] MEDS ORDERED: ROCEPHIN 1 GM / 100 ML NaCl 1 GM/100 ML IVPB IV ONE (14:10)
[2024-11-25] MEDS: PROTONIX 40 MG IV IV ONE (14:11)
[2024-11-25] MEDS: ROCEPHIN 1 GM / 100 ML NaCl 1 GM/100 ML IVPB IV ONE (14:11)
[2024-11-25 15:01] VITALS: BP 140/73; RESP 20
== END 2024-11-25 15:01 | disposition home or self-care (01) ==
LOC: ED 11:37
DX: N39.0 Urinary tract infection, site not specified (principal); K59.00 Constipation, unspecified; K92.0 Hematemesis; K92.1 Melena; R10.30 Lower abdominal pain, unspecified; Z79.01 Long term (current) use of anticoagulants; Z79.891 Long term (current) use of opiate analgesic; Z79.899 Other long term (current) drug therapy
CPT/HCPCS: 36415; 74176; 80053; 81001; 84484; 85025; 85610; 85730; 87077; 87086; 87186; 93005; 93041; 96374; 96375; 99284; 99285; J0696

== ENCOUNTER 2025-01-02 09:29 | Emergency (ER) | payer MEDICARE, OTHER ==
--- NOTE | 2025-01-02 09:33 | ERPHSYRPT ---
- History of Present Illness Time Seen by Provider: 01/02/25 09:32 Source: patient, family Exam Limitations: no limitations Physician History: This is an obese 74-year-old white female patient arrives by private vehicle and is a patient of Dr. Durham with productive cough of white phlegm for 4 days. She is coughing to the point where she is hurting in her lower ribs on the right side more than the left. Patient denies chest pain. She is not short of breath. Her room air oxygen saturation level is running 97 to 98%. Patient prefers Tessalon Perles and the Keflex antibiotic if I am writing prescription for her. Patient has a history of arrhythmia and is on Xarelto. She has a history of COPD, arthritis, peripheral neuropathy, depression and gastroesophageal reflux disease Timing/Duration: day(s) (4) Cough Quality/Degree: productive cough (White phlegm) Possible Cause: occasional episodes Modifying Factors: Improves With: coughing Associated Symptoms: cough, No fever, No chills, No chest pain/soreness, No muscle aches, No shortness of breath, No sore throat Allergies/Adverse Reactions: docosahexaenoic acid [From Nuretin] Allergy (Verified 01/02/25 09:43) eicosapentaenoic acid [From Nuretin] Allergy (Verified 01/02/25 09:43) fish oil [From Nuretin] Allergy (Verified 01/02/25 09:43) gabapentin Allergy (Verified 01/02/25 09:43) morphine Allergy (Verified 01/02/25 09:43) omega-3 fatty acids [From Nuretin] Allergy (Verified 01/02/25 09:43) pregabalin [From Lyrica] Allergy (Verified 01/02/25 09:43) Home Medications: Rivaroxaban [Xarelto] 15 mg PO HS 04/13/21 [History] Sertraline HCl [Zoloft] 25 mg PO HS 04/13/21 [History] Zolpidem Tartrate [Ambien] 5 mg PO HS 04/13/21 [History] Metoprolol Succinate 50 mg PO HS 04/16/23 [History] Calcium Phosphate Trib/Vit D3 [Calcium + Vitamin D3 Gummies] 1 each PO HS 06/03/24 [History] Vitamin B Complex 1 each PO HS 06/03/24 [History] Tramadol HCl 50 mg [Ultram 50 mg] 25 mg PO HS 11/25/24 [History] Alendronate Sodium 70 mg [Fosamax 70 MG] 70 mg PO Q7D@0600 12/05/24 [History] Budesonide/Formoterol Fumarate [Breyna 160-4.5 Mcg Inhaler] 10.3 gm IH BID 12/05/24 [History] Ezetimibe 10 mg [Zetia 10 MG] 10 mg PO DAILY 12/05/24 [History] Lidocaine [Lido Hema] 1 each TP DAILY 12/05/24 [History] Metformin HCl [Metformin HCl ER] 500 mg PO DAILY 12/05/24 [History] Omeprazole 40 mg PO DAILY 12/05/24 [History] Sucralfate 1 gm [Carafate 1 GM] 1 g ACHS 01/02/25 [History] Hx Tetanus, Diphtheria Vaccination/Date Given: Yes Hx Influenza Vaccination/Date Given: No Hx Pneumococcal Vaccination/Date Given: Yes Travel Risk - International Travel Have you traveled outside of the country in past 3 weeks: No - Emerging Infectious Disease Are you exhibiting symptoms associated with any current EIDs: Yes Symptoms: Vomitting - Review of Systems Constitutional: No Symptoms Eyes: No Symptoms Ears, Nose, & Throat: No Symptoms Respiratory: Cough Cardiac: No Symptoms Abdominal/Gastrointestinal: No Symptoms Genitourinary Symptoms: No Symptoms Musculoskeletal: No Symptoms Skin: No Symptoms Neurological: No Symptoms Psychological: No Symptoms Endocrine: No Symptoms Hematologic/Lymphatic: No Symptoms Immunological/Allergic: No Symptoms All Other Systems: Reviewed and Negative - Past Medical History Pertinent Past Medical History: Yes Neurological History: Peripheral Neuropathy ENT History: No Pertinent History Cardiac History: Arrhythmia Respiratory History: COPD Endocrine Medical History: No Pertinent History Musculoskeletal History: Arthritis, Degenerative Disk Disease GI Medical History: GERD, Other History: No Pertinent History Psycho-Social History: Depression Female Reproductive Disorders: No Pertinent History Other Medical History: SPINE STIMULATOR, HX OF LUMBAR SX ~4-5 YEARS AGO (UNSURE OF SX TYPE), PACEMAKER (~6 YEARS AGO), STRONG FAMILY OF CANCER. - Past Surgical History Past Surgical History: Yes Neuro Surgical History: No Pertinent History Cardiac: Cardiac Catheterization, Pacemaker Respiratory: No Pertinent History Gastrointestinal: Appendectomy, Cholecystectomy Genitourinary: No Pertinent History Musculoskeletal: Orthopedic Surgery Female Surgical History: Hysterectomy Other Surgical History: rectal cancer surgery. left wrist. dental implant. spinal surgery. pain stimulator. sinus - Social History Drug Use: none - Social Determinants of Health Will the patient participate in the screening: Yes Do you worry about a steady place to live?: No In the past 12 months,have you had to go without utilities?: No Transportation Issues: No Has anyone in your support network made you feel unsafe?: No Have you or anyone in your house had to go w/o enough food: No - Nursing Vital Signs Nursing Vital Signs: Initial Vital Signs Temperature 96.7 F 01/02/25 09:33 Pulse Rate 90 01/02/25 09:33 Blood Pressure 148/84 01/02/25 09:33 O2 Sat by Pulse Oximetry 97 01/02/25 09:33 Pain Scale Pain Intensity 7 - Physical Exam General Appearance: no apparent distress, alert, anxiety, obese Eye Exam: PERRL/EOMI, eyes nml inspection Ears, Nose, Throat Exam: normal ENT inspection, moist mucous membranes Neck Exam: normal inspection, non-tender, supple, full range of motion Respiratory Exam: normal breath sounds, lungs clear, airway intact, No chest tenderness, No respiratory distress Cardiovascular Exam: regular rate/rhythm, normal heart sounds, normal peripheral pulses Gastrointestinal/Abdomen Exam: soft, normal bowel sounds, No tenderness Pelvic Exam: not done Back Exam: normal inspection, normal range of motion, No CVA tenderness, No vertebral tenderness Extremity Exam: normal inspection, normal range of motion, pelvis stable Neurologic Exam: alert, oriented x 3, cooperative, brake linings coater II-XII nml as tested, nml cerebellar function, nml station & gait, sensation nml Skin Exam: normal color Lymphatic Exam: No adenopathy SpO2 Interpretation: normal O2 Delivery: Room Air - Course Nursing assessment & vital signs reviewed: Yes Ordered Tests: Active Orders 24 hr Category Date Time Status CHEST 1 VIEW (PORTABLE) Stat Exams 01/02/25 10:01 Completed Lab/Rad Data: Laboratory Results 01/02/25 01/02/25 Range/Units 10:17 10:17 Influenza Type A Ag NEGATIVE (NEGATIVE) Influenza Type B Ag NEGATIVE (NEGATIVE) RSV (PCR) NEGATIVE (NEGATIVE) SARS-CoV-2 (PCR) NEGATIVE (NEGATIVE) Group A Strep Antibody NOT DETECTED (NEGATIVE) - Progress Progress: re-examined, unchanged Air Movement: good Progress Note: 01/02/25 10:21 My medical decision making of the assignment of low complexity of this patient's medical issue today is based on review of the patient's past medical history, review the patient's medication list, review of the patient's drug allergy list, history present illness and physical findings on examination. The workup in this patient includes portable chest x-ray, viral swabs and group A strep test. Differential diagnosis includes but is not limited to viral illness, strep pharyngitis, upper respiratory infection, pneumonia 01/02/25 10:46 The final chest x-ray report was interpreted by the radiologist. The impression states nonacute chest with chronic features. 01/02/25 11:00 I interpreted the patient's laboratory data results. Based on the laboratory data results, there are no acute, emergent medical issues. Blood Culture(s) Obtained: No Antibiotics given: No Counseled pt/family regarding: lab results, diagnosis, need for follow-up, rad results Medical Desision Making - Diagnostic Testing Diagnostic test were ordered, analyzed, and reviewed by me: Yes Radiological Interpretation: Reviewed by me, Teleradiologist Report - Risk of complications The pt has a mod risk of morbidity or mortality based on: Need for prescription drug management - Departure Departure Disposition: Home Clinical Impression: Upper respiratory infection Condition: Stable Critical Care Time: No Referrals: RAJINDER DURHAM MD [Primary Care Provider] - Follow up/PCP as directed Additional Instructions: Drink plenty of fluids. Avoid exposure to any type of smoke. Take your medications as prescribed. Call your primary care provider today to make arrangements for a follow-up appointment and to be seen in the next 3 to 5 days. Prescriptions: Benzonatate 200 mg PO TID PRN #10 cap PRN Reason: Cough Prednisone 10 mg [Deltasone 10 mg] 10 mg PO TID #12 tablet Cephalexin Mh 500 mg [Keflex 500 mg] 500 mg PO TID #21 cap
[2025-01-02 09:43] VITALS: PULSE 90; TEMP 96.7
--- NOTE | 2025-01-02 10:38 | XRAY ---
Indication: Productive cough. Comparison: July 17, 2023 Portable chest unchanged again demonstrating COPD and left hilar/pulmonary calcite granulomas. Heart not enlarged again with left pacemaker. Bony thorax intact again with osteopenia, degenerative changes, old mandible fracture with fixation hardware, and epidural leads. Impression: Continued nonacute chest with chronic features.
[2025-01-02 10:55] LABS: INFLUENZA A NEGATIVE (NEGATIVE); INFLUENZA B NEGATIVE (NEGATIVE); RESPIRATORY SYNCTIAL VIRUS NEGATIVE (NEGATIVE); SARS-CoV-2 Xpert Express NEGATIVE (NEGATIVE)
[2025-01-02 11:03] VITALS: BP 153/69; O2SAT 95
== END 2025-01-02 11:04 | disposition home or self-care (01) ==
LOC: ED 09:29
DX: J06.9 Acute upper respiratory infection, unspecified (principal); R05.1 Acute cough; Z79.01 Long term (current) use of anticoagulants; Z79.84 Long term (current) use of oral hypoglycemic drugs; Z79.52 Long term (current) use of systemic steroids; Z79.899 Other long term (current) drug therapy
CPT/HCPCS: 0241U; 71045; 87651; 99284; 99283